=== PATIENT | female | born 1965 | race Caucasian/White ===

== ENCOUNTER 2017-03-14 21:43 | Emergency (ER) | payer SELFPAY ==
[2017-03-14 22:15] VITALS: BP 117/71
== END 2017-03-14 22:51 | disposition left against medical advice (07) ==
LOC: DL.ED 21:43
DX: Z53.21 Procedure and treatment not carried out due to patient leaving prior to being seen by health care provider (principal)
CPT/HCPCS: 99283

== ENCOUNTER 2023-07-04 04:27 | Emergency (ER) | payer SELFPAY ==
[2023-07-04 04:39] VITALS: BP 102/77; PULSE 98
[2023-07-04] MEDS: cefTRIAXone 1 GM Vial IM ONE (04:54)
[2023-07-04] MEDS ORDERED: cefTRIAXone 2 GM Vial IVPUSH ONE (04:58)
== END 2023-07-04 05:28 | disposition home or self-care (01) ==
LOC: DL.ED 04:27
DX: K04.6 Periapical abscess with sinus (principal)
CPT/HCPCS: 96372; 99283; J0696

== ENCOUNTER 2023-07-05 12:05 | Emergency (ER) | payer SELFPAY ==
[2023-07-05 13:05] LABS: CORONAVIRUS COVID-19 NAA NEGATIVE (NEGATIVE); INFLUENZA A NAA NEGATIVE (NEGATIVE); INFLUENZA B NAA NEGATIVE (NEGATIVE)
[2023-07-05 13:45] VITALS: BP 105/49; PULSE 85
[2023-07-05] MEDS: Sodium Chloride 0.9% 10 ML Syringe FLUSH PRN (13:45)
[2023-07-05] MEDS: Albuterol/Ipratropium 3.0-0.5 MG/3 ML Neb Soln NEB ONE (13:45)
[2023-07-05] MEDS: LORazepam 2 MG/ML SDV IVPUSH ONE (13:45)
[2023-07-05] MEDS: Sodium Chloride 0.9% 1,000 ML IV ONE (13:45)
[2023-07-05 13:56] LABS: BASOPHILS PERCENT AUTO 0.3 % (0.0-1.0); EOSINOPHILS PERCENT AUTO 2.8 % (1.0-3.0); HEMATOCRIT 46.2 % (37.0-47.0); HEMOGLOBIN 15.9 g/dL (12.0-16.0); MEAN CORPUSCULAR HEMOGLOBIN 30.4 pg (27.0-34.0); MEAN CORPUSCULAR HGB CONC 34.4 g/dL (33.0-35.0); MEAN CORPUSCULAR VOLUME 88.3 fL (80-100); MONOCYTES PERCENT AUTO 5.6 % (2-8); NEUTROPHILS PERCENT AUTO 67.3 % (42.2-75.2); PLATELET COUNT,PLT 375 10^3/uL (150-450); RED BLOOD CELL COUNT 5.23 10^6/uL (4.2-5.4); WHITE BLOOD CELL COUNT,WBC 7.5 10^3/uL (5.0-10.0)
[2023-07-05 14:07] LABS: A/G RATIO 0.9; ALANINE AMINOTRANSFERASE,ALT 701 U/L (14-59); ALBUMIN 3.4 g/dL (3.4-5.0); ALKALINE PHOSPHATASE 129 U/L (46-116); ANION GAP 18.3 mEq/L (7-13); ASPARTATE AMNIOTRANSFERASE,AST 465 U/L (15-37); BILIRUBIN TOTAL 0.7 mg/dL (0.2-1.0); BLOOD UREA NITROGEN,BUN 27 mg/dL (7-18); BUN/CREATININE RATIO 28.1 (No establ ref range); CALCIUM 9.4 mg/dL (8.5-10.1); CARBON DIOXIDE,CO2 23 mmol/L (21-32); CHLORIDE,CL 101 mmol/L (98-107); CREATININE 0.96 mg/dL (0.55-1.02); EST CRCL DRUG DOSING (CG) 47.41 mL/min; GLUCOSE RANDOM 92 mg/dL (70-99); LACTIC ACID 1.8 mmol/L (0.4-2.0); POTASSIUM,K 4.3 mmol/L (3.5-5.1); PROTEIN TOTAL,TP 7.2 g/dL (6.4-8.2); SODIUM,NA 138 mmol/L (136-145)
[2023-07-05 14:12] LABS: ESTIMATED GFR 70 mL/min (>=60)
[2023-07-05 14:13] LABS: ETHANOL BLOOD MEDICAL < 3 mg/dL (0)
[2023-07-05] MEDS ORDERED: Iopamidol 612 MG/ML 100 ML Bottle IVPUSH ONE (14:52)
[2023-07-05 15:20] LABS: MAGNESIUM 1.7 mg/dL (1.8-2.4)
[2023-07-05] MEDS: Iopamidol 755 Mg/ML 100 ML Bottle IVPUSH ONE (15:20)
[2023-07-05 15:21] LABS: INR 1.1 (0.9-1.2); PROTHROMBIN TIME 11.2 SEC (9.0-12.0)
== END 2023-07-05 17:35 | disposition home or self-care (01) ==
LOC: DL.ED 12:05
DX: F41.0 Panic disorder [episodic paroxysmal anxiety] (principal); R74.01 Elevation of levels of liver transaminase levels; F17.210 Nicotine dependence, cigarettes, uncomplicated
CPT/HCPCS: 0240U; 36415; 71046; 74177; 80053; 80074; 80143; 80307; 82140; 82150; 83605; 83615; 83690; 83735; 84145; 84484; 85025; 85610; 96361; 96374; 99284; 99285; J2060; J7030; Q9967; J3490; J7620-GY